=== PATIENT | male | born 1985 | race African-American/Black ===

== ENCOUNTER 2018-11-26 23:31 | Emergency (ER) | payer SELFPAY ==
[2018-11-26] MEDS ORDERED: Proparacaine 0.5% Opth 15 ML BOT ONE (23:46)
[2018-11-26] MEDS ORDERED: Fluorescein Opthalmic Strip ONE (23:46)
== END 2018-11-27 00:08 | disposition home or self-care (01) ==
LOC: ERS 23:31
DX: S05.01XA Injury of conjunctiva and corneal abrasion without foreign body, right eye, initial encounter (principal); L03.213 Periorbital cellulitis; X58.XXXA Exposure to other specified factors, initial encounter
CPT/HCPCS: 99283

== ENCOUNTER 2019-09-19 15:16 | Emergency (ER) | payer SELFPAY ==
[2019-09-19] MEDS ORDERED: Ketorolac Tromethamine 30 MG/ML VIAL ONE (15:28)
== END 2019-09-19 15:46 | disposition home or self-care (01) ==
LOC: ERS 15:16
DX: S16.1XXA Strain of muscle, fascia and tendon at neck level, initial encounter (principal); M25.512 Pain in left shoulder; M25.511 Pain in right shoulder; X50.0XXA Overexertion from strenuous movement or load, initial encounter
CPT/HCPCS: 96372; 99283; J1885

== ENCOUNTER 2020-03-11 20:57 | Emergency (ER) | payer SELFPAY ==
[2020-03-11] MEDS ORDERED: Acetaminophen/Codeine 30-300mg Tablet ONE (22:21)
[2020-03-11] MEDS ORDERED: Ibuprofen 200 MG TAB ONE (22:21)
[2020-03-11] MEDS ORDERED: Penicillin V Potassium 250 MG TAB PO SCH (23:00)
== END 2020-03-11 23:12 | disposition home or self-care (01) ==
LOC: ERS 20:57
DX: K04.01 Reversible pulpitis (principal); M79.5 Residual foreign body in soft tissue
CPT/HCPCS: 99283

== ENCOUNTER 2020-12-21 00:33 | Emergency (ER) | payer SELFPAY ==
[2020-12-21] MEDS ORDERED: Fluorescein Opthalmic Strip ONE (02:01)
[2020-12-21] MEDS ORDERED: Proparacaine 0.5% Opth 15 ML BOT ONE (02:01)
== END 2020-12-21 02:23 | disposition home or self-care (01) ==
LOC: ERS 00:33
DX: S05.02XA Injury of conjunctiva and corneal abrasion without foreign body, left eye, initial encounter (principal); H10.9 Unspecified conjunctivitis; X58.XXXA Exposure to other specified factors, initial encounter
CPT/HCPCS: 99283

== ENCOUNTER 2020-12-24 16:48 | Emergency (ER) | payer SELFPAY | END 2020-12-24 19:00 | disposition home or self-care (01) | LOC: ERS 16:48 | DX: S05.02XA Injury of conjunctiva and corneal abrasion without foreign body, left eye, initial encounter (principal); H10.9 Unspecified conjunctivitis; X58.XXXA Exposure to other specified factors, initial encounter | CPT/HCPCS: 99281 ==

== ENCOUNTER 2021-05-19 15:21 | Emergency (ER) | payer SELFPAY ==
[~2021-05-19 15:21] MED LIST: Iopamidol-370 76% 500 ML 1 ML ONE
[2021-05-19 16:39] LABS: #Lymphocytes 0.5 thou/uL (1.20-3.40); #Monocytes 0.4 thou/uL (0.11-0.59); #Neutrophils 2.4 thou/uL (1.40-6.50); %Lymphocytes 15.5 % (21.0-51.0); %Monocytes 10.7 % (0.0-10.0); %Neutrophils 72.8 % (42.0-75.0); Hemoglobin 16.4 g/dL (14.0-18.0); Mean Corpuscular HGB CONC 33.8 g/dL (32.0-36.0); Mean Corpuscular Hemoglobin 31.7 pg (27.0-31.0); Mean Corpuscular Volume 93.8 fL (78.0-98.0); Mean Platelet Volume 6.8 fL (7.4-10.4); Platelet Count 210 thou/uL (130-400); RBC Distribution Width 11.3 % (11.5-14.5); Red Blood Cell (RBC) Count 5.18 mill/uL (4.70-6.10); White Blood Cell (WBC) Count 3.2 thou/uL (4.8-10.8)
[2021-05-19 16:57] LABS: Anion Gap 11 mmol/L (10-20); BUN (Urea Nitrogen) 15 mg/dL (8.9-20.6); Calc. Creatinine Clearance 0 mL/min (70-130); Calcium 9.2 mg/dL (7.8-10.44); Carbon Dioxide 28 mmol/L (22-29); Chloride 102 mmol/L (98-107); Glucose 94 mg/dL (70-105); Potassium 3.8 mmol/L (3.5-5.1); Sodium 137 mmol/L (136-145)
[2021-05-19 17:53] LABS: ALT (SGPT) 17 U/L (8-55); AST (SGOT) 27 U/L (5-34); Albumin 3.9 g/dL (3.5-5.0); Alkaline Phosphatase 70 U/L (40-110); Bilirubin, Total 2.1 mg/dL (0.2-1.2); Globulin 2.4 g/dL (2.4-3.5); Protein, Total 6.3 g/dL (6.0-8.3)
[2021-05-19] MEDS ORDERED: Ketorolac Tromethamine 30 MG/ML VIAL ONE (19:38)
[2021-05-19 20:06] LABS: Bacteria/HPF None Seen HPF (None Seen); Bilirubin Negative (Negative); Blood, Urine Negative (Negative); Clarity Clear (Clear); Glucose, Urine (Dipstick) Normal (Negative); Ketone, Urine 20 mg/dL (Negative); Leukocyte 75 Leu/uL (Negative); Nitrite Negative (Negative); Protein, Urine (Dipstick) 30 mg/dL (Neg-Trace); RBC/HPF 0-3 HPF (0-3); Specific Gravity, Urine 1.037 (1.002-1.036); Squamous Epithelial 0-3 HPF (0-3); Urobilinogen Normal mg/dL (Less than 2); pH, Urine 5.5 (5.0-9.0)
[2021-05-19 20:30] LABS: #Lymphocytes 0.8 thou/uL (1.20-3.40); #Monocytes 0.3 thou/uL (0.11-0.59); #Neutrophils 2.1 thou/uL (1.40-6.50); %Basophils 0.5 % (0.0-1.0); %Eosinophils 0.7 % (0.0-10.0); %Lymphocytes 25.6 % (21.0-51.0); %Monocytes 9.6 % (0.0-10.0); %Neutrophils 63.6 % (42.0-75.0); Hemoglobin 15.3 g/dL (14.0-18.0); Mean Corpuscular HGB CONC 33.9 g/dL (32.0-36.0); Mean Corpuscular Hemoglobin 31.8 pg (27.0-31.0); Mean Corpuscular Volume 93.8 fL (78.0-98.0); Mean Platelet Volume 6.9 fL (7.4-10.4); Platelet Count 191 thou/uL (130-400); RBC Distribution Width 11.4 % (11.5-14.5); Red Blood Cell (RBC) Count 4.81 mill/uL (4.70-6.10); White Blood Cell (WBC) Count 3.3 thou/uL (4.8-10.8)
== END 2021-05-19 21:54 | disposition home or self-care (01) ==
LOC: ERS 15:21
DX: A08.4 Viral intestinal infection, unspecified (principal)
CPT/HCPCS: 36415; 74177; 81003; 81015; 83690; 85025; 96374; J1885; Q9967

== ENCOUNTER 2021-07-18 07:08 | Emergency (ER) | payer SELFPAY | END 2021-07-18 09:34 | disposition home or self-care (01) | LOC: ERS 07:08 | DX: L29.8 Other pruritus (principal) | CPT/HCPCS: 99282 ==

== ENCOUNTER 2023-11-10 07:27 | Emergency (ER) | payer SELFPAY ==
[2023-11-10] MEDS ORDERED: Ketorolac Tromethamine 30 MG (1 mL) VIAL ONE (07:43)
== END 2023-11-10 08:07 | disposition home or self-care (01) ==
LOC: ERS 07:27
DX: M54.2 Cervicalgia (principal)
CPT/HCPCS: 96372; 99282; J1885